=== PATIENT | female | born 1995 | race Caucasian/White ===

== ENCOUNTER 2021-03-19 10:44 | Emergency (ER) | payer OTHER ==
[~2021-03-19] VITALS: Ht 172.7 cm; Wt 89.8 kg
[2021-03-19] MEDS ORDERED: NASAL SPRAY30 M2 NASAL (11:31)
[2021-03-19] MEDS ORDERED: APAP W/CODEINE1 TA2 PO (11:31)
[2021-03-19 11:43] VITALS: BP 142/91
== END 2021-03-19 11:44 | disposition home or self-care (01) ==
LOC: M.ERS 10:44
DX: H92.01 Otalgia, right ear (principal); R68.84 Jaw pain